=== PATIENT | female | born 1985 | race Caucasian/White ===

== ENCOUNTER 2025-04-17 10:43 | Outpatient (AMB) | payer OTHER, SELFPAY ==
--- NOTE | 2025-04-17 10:45 | MHC.OFFVIS ---
Vital Signs 04/17/25 10:46 Height 5 ft 5 in Weight 165 lb 9.074 oz BMI 27.5 BP 106/64 Blood Pressure Location Lt brachial Position Sitting Pulse 76 Pulse Source Pulse Oximeter Pulse Oximetry (%) 99 Oxygen Delivery Method Room Air Intake Visit Reasons: Hypothyroidism Intake Note: New patient present today for Hypothyroidism office visit. 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 Most recent labs from 02/17/2025 done at [facility], I reviewed them, TSH high at 5.57, normal free T4 at 1.03, normal free T3 at 281. She is currently on levothyroxine 25 mcg daily.Restarted January 2025. pharmacy: [facility] Was on levothyroxine from 2014 up until Aug 2024, when she was hospitalized with palpitations, dizziness, and TSH per patient was low around 0.07 and levothyroxine was discontinued. 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 US thyroid reviewed on patient's phone from [facility] early spring 2024 RUP solid hypoechoic 1.3 X 0.6 X 0.8 cm, TR 4. Left upper pole, solid hypoechoic 1.1 X 0.5 X 0.7 cm, TR 4 category. Left midpole solid hypoechoic 1 X 0.5 X 0.7 cm, TR 4 category. Reports constipation. Reports cold intolerance but wearing summer clothes today. palpitations improved. No tremors. Weight stable in the last few weeks, some fluctuation in the past months. Tired all the time low mood . Patient endorses difficulty swallowing since winter 2023, pain on swallowing. Reports hoarsness. Reports pressure sensation and fullness in the neck. Dyspnea on exertion. Patient denies any history of childhood neck radiation. Denies having ever used lithium, amiodarone or biotin supplements. Patient denies any family history of thyroid cancer . Grandmother: thyroid disease : 4 , 4 live births, no infertility issues Regular monthly periods Physical exam General: sitting comfortably in no acute distress HEENT: normocephalic/atraumatic, moist oral mucosa Neck: supple, symmetrical, no thyromegaly , Cardiac: normal heart sounds Pulm: normal breath sounds B/L, no added breath sounds Abd: not distended, no tenderness Extremities: no edema, no signs of myxedema Neuro: AAO x3, Speech: normal, no facial droop, moving all 4 extremities [facility] Medical History (Updated 04/17/25 @ 11:21 by Ernestina Segal MD) Subclinical hypothyroidism Multinodular goiter (nontoxic) Family History (Updated 04/17/25 @ 10:52 by ZEYAD Pierre) Mother Pancreatic cancer Diabetes Father Heart disease COPD (chronic obstructive pulmonary disease) Social History (Updated 04/17/25 @ 10:52 by ZEYAD Pierre) Alcohol intake: current Alcohol intake frequency: does not drink Patient Tobacco Use Status: Never used Tobacco Physical Exam Vital Signs: Last Vital Signs Pulse 76 04/17/25 10:46 BP 106/64 04/17/25 10:46 Pulse Ox 99 04/17/25 10:46 Oxygen Delivery Method Room Air 04/17/25 10:46 BMI result Body Mass Index 27.5 Assessment & Plan Assessment & Plan (1) Multinodular goiter (nontoxic): Code(s): E04.2 - Nontoxic multinodular goiter Category: Medical Plan: 39-year-old female with no family history of thyroid cancer, with no personal history of head or neck radiation coming in today for initial evaluation of multiple thyroid nodules. Ultrasound of the thyroid report reviewed on patient's phone, done in spring at [facility], showed multiple bilateral thyroid nodules, most of these are TR 4 nodules less than 1.5 cm which needed follow up. None meet criteria for FNA. At this point we will plan to repeat an ultrasound in 1 year from the last 1 which would be sometime in November 2025. I will go ahead and order that now. Plan: -ordered ultrasound of the thyroid to be done in November 2025 (2) Subclinical hypothyroidism: Code(s): E03.8 - Other specified hypothyroidism Category: Medical Plan: 39-year-old female with a history of subclinical hypothyroidism in the setting of Greg's thyroiditis diagnosed in 2014 who was on levothyroxine 25 mcg daily up until 08/06/2024 when she was hospitalized with palpitations, dizziness and was found to have a low TSH per patient. Most recent blood work in January 2025 showed TSH elevated at 5.57, normal free T4 of 1.03. Consistent with subclinical hyperthyroidism. She was restarted on low-dose levothyroxine 25 mcg daily. It has been about 8 weeks since she has been on the medicine. I discussed with the patient that normally indications for treatment of subclinical hypothyroidism include TSH greater than 10 or TSH between 6-9 when patient is having quite a few symptoms. At this point even though her TSH was not that elevated, it would just kind of borderline of 6, plus she does report improvement in most of her symptoms after she has been started on levothyroxine 25 mcg daily. For now she can continue this. I have asked her to repeat blood work today. We will reach out with the results. Plan: -continue levothyroxine 25 mcg daily -ordered TSH, free T4 to be done now, we will reach out with the results -we will need another set of blood work prior to follow up in 8 weeks Plan I spent 45 minutes in reviewing the record, seeing the patient and documenting in the medical record. Orders: Orders US thyroid 12/01/25 E04.2 - Nontoxic multinodular goiter Thyroid Stimulating Hormone Today E03.8 - Other specified hypothyroidism Free T4 (Free Thyroxine) Today E03.8 - Other specified hypothyroidism Coding Level of Care Code New Pt Level 4 (65982) Diagnoses Multinodular goiter (nontoxic) E04.2 Subclinical hypothyroidism E03.8 Time Spent (min) 45
[2025-04-17 10:46] VITALS: BP 106/64; PULSE 76; O2SAT 99; BMI 27.5
--- OUTSIDE RECORDS SUMMARY | 2025-04-17 11:22 | XMS_ITS | Clinical Summary ---
Author Organization [facility] Address [address] [place] [address] Phone Care Team Providers Care Quality Facilitator Name Role Phone Cody Grace MD Primary Care Provider [phone] Allergies Active Allergy Reactions Criticality Noted Date Comments Lisinopril Cough 03/18/2025 Medications levothyroxine (SYNTHROID, LEVOTHROID) 25 mcg tablet Take 1 tablet (25 mcg total) by mouth 1 (one) time each day before breakfast. 90 tablet 3 02/19/20 25 026 Active cholecalcifero l (VITAMIN D-3) 50 mcg (2,000 unit) capsule Take 1 capsule (2,000 Units total) by mouth 1 (one) time each day. 30 each 02/19/20 25 026 Active ferrous sulfate 325 mg (65 mg iron) EC tablet Take 1 tablet (325 mg total) by mouth 1 (one) time each day with breakfast. Do not crush, chew, or split. 90 tablet 1 03/31/20 25 Active hydroCHLOROthi azide (HYDRODIURIL) 25 mg tablet Take 1 tablet (25 mg total) by mouth 1 (one) time each day. 90 each 03/31/20 25 026 Active losartan (Cozaar) 25 mg tablet Take 2 tablets (50 mg total) by mouth 1 (one) time each day. 90 each 04/01/20 25 026 Active amLODIPine (NORVASC) 10 mg tablet TAKE ONE TABLET BY MOUTH EVERY DAY 90 tablet 04/10/20 25 Active amLODIPine (NORVASC) 10 mg tablet Take 1 tablet (10 mg total) by mouth 1 (one) time each day. 90 tablet 01/04/20 25 025 Discontinued hydroCHLOROthi azide (HYDRODIURIL) 50 mg tablet Take 1 tablet (50 mg total) by mouth 1 (one) time each day. 90 each 1 03/18/20 25 025 Discontinued(Re order) losartan (Cozaar) 25 mg tablet Take 1 tablet (25 mg total) by mouth 1 (one) time each day. 90 each 1 03/18/20 25 025 Discontinued(Re order) potassium chloride (KLOR-CON M20) 20 mEq CR tablet Take 1 tablet (20 mEq total) by mouth 2 (two) times a day for 2 days. Tablet may be swallowed whole (do not crush/chew/gtz ck on) OR broken in half and each half swallowed separately OR dissolved (whole tablet) in ~4 ounces of water (allow ~2 minutes to dissolve, stir well and administer immediately). 4 each 03/18/20 25 025 potassium chloride (KLOR-CON M20) 20 mEq CR tablet Take 1 tablet (20 mEq total) by mouth 2 (two) times a day for 7 days. Tablet may be swallowed whole (do not crush/chew/gtz ck on) OR broken in half and each half swallowed separately OR dissolved (whole tablet) in ~4 ounces of water (allow ~2 minutes to dissolve, stir well and administer immediately). 14 each 03/31/20 25 025 losartan (Cozaar) 25 mg tablet Take 2 tablets (50 mg total) by mouth 1 (one) time each day. 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 History of vitamin D deficiency 02/17/2025 History of iron deficiency anemia 02/17/2025 Essential hypertension 03/09/2016 Hypothyroidism 03/09/2016 Overview (07/31/2024): Synthroid 25 mcg daily Headache 12/26/2008 Encounters Date Type Department Care Team Description 04/07/2025 12:24 PM EDT - 04/07/2025 11:59 PM EDT Hospital Encounter Radiology Department - [address] [phone] Lymph node disorder Discharge Disposition: Home or Self Care 04/07/2025 12:24 PM EDT - 04/07/2025 11:59 PM EDT Hospital Encounter Radiology Department - [address] [phone] Abnormal ultrasound of breast Discharge Disposition: Home or Self Care 03/31/2025 1:59 PM EDT - 03/31/2025 11:59 PM EDT Hospital Encounter Radiology Department - [address] [phone] Lymph node disorder Discharge Disposition: Home or Self Care 03/31/2025 1:59 PM EDT - 03/31/2025 11:59 PM EDT Hospital Encounter Radiology Department - [address] [phone] Lymph node disorder Discharge Disposition: Home or Self Care 03/18/2025 10:15 AM EDT Office Visit Internal Medicine - [address] [phone] Arleen Azar NP Palpitations (Primary Dx); Essential hypertension; Screening for metabolic disorder; Hypothyroidism, unspecified type; Lymph node disorder 02/28/2025 1:17 PM EDT - 02/28/2025 11:59 PM EDT Hospital Encounter Ultrasound - [address] [phone] 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 Discharge Disposition: Home or Self Care 02/17/2025 10:35 AM EDT Lab Draw Station [address] Screening for metabolic disorder; 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 02/17/2025 10:00 AM EDT Office Visit Internal Medicine - [address] [phone] Arleen Azar, [employer] 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 (Primary Dx); Essential hypertension; Screening for metabolic disorder; History of iron deficiency anemia; History of vitamin D deficiency from Last 3 Months Immunizations Name Administration Dates Next Due Influenza Quadravalent, MDCK , 0.5ml, preservative free (Flucelvax) 6mo and older 07/12/2023,09/02/2021 Influenza Quadravalent, MDCK , 0.5ml, with preservative (Flucelvax) 6mo and older 06/22/2018,06/06/2017 Influenza trivalent, 0.5mL, preservative free (Fluarix; FluLaval; Fluzone) ages 6mo and older (Afluria) 3 years and older 07/30/2024,07/01/2011 PPD Test 12/15/2009 Tdap Tetanus diptheria acell ular pertussis (Boostrix; Adacel) 7yo and older 04/07/2017,12/26/2008 Surgical History Surgery Date Site/Laterality Comments OTHER SURGICAL HISTORY PROCEDURE: DENIES PREVIOUS SURGERY Medical History Medical History Date Comments Chlamydia infection, current 02/04/2011 DX:Chlamydia infection, current Anemia of mother in pregnanc y, antepartum 06/01/2011 DX:Anemia of mother in pregn shana, antepartum Essential hypertension 03/09/2016 DX:Essent ial hypertension Hypothyroidism 03/09/2016 DX:Hypothyroidis m Essential hypertension 03/09/2016 Hypothyroidism 03/09/2016 Family History Medical History Relation Name Comments Breast cancer Aunt mat maternal, bila teral mastectomy No Known Problems Brother Tima No Known Problems Daughter 1 No Known Problems Daughter 2 Hypertension Father Andres CAD (MS), COPD Prostate cancer Maternal Grandfather Colon cancer Maternal Grandmother Cancer Mother Ava Diabetes Mother Ava iddm, pancreati c CA (age 58) Early Mother Ava Breast cancer Mother's Sister Mirian labor Sister 1 Nina twins, deliver ed at ?6-7 months Spontaneous Abortions Sister 1 Nina Diabet es (GDM w/insulin), eclampsia No Known Problems Sister 2 Franny No Known Problems Sister 3 Sunita No Known Problems Son Relation Name Status Comments Aunt mat Alive Brother Tima Alive Daughter 1 Alive Daughter 2 Alive Father Andres Alive Maternal Grandfather Maternal Grandmother Alive Mother Ava (Age 59) Mother's Sister Mirian Paternal Grandfather Paternal Grandmother Sister 1 Nina Alive Sister 2 Franny Alive Sister 3 Sunita Alive Son Alive Social History Tobacco Use Types Packs/Day Years Used Date Smoking Tobacco: Never Smokeless Tobacco: Never Tobacco Cessation:Counseling Given: Not Answered Alcohol Use Standard Drinks/Week Comments No 0 (1 standard drink = 0.6 oz pur e alcohol) Housing Instability Answer Date Recorde d Are you worried that in the next 2 months you may not have stable housing? No 02/16/2025 Food Access & Nutrition Answer Date Rec orded Do you have access to a vari ety of food including fruits and vegetables? Yes 02/16/2025 Health Literacy Answer Date Recorded How often do you need to hav e someone help you when you read instructions, pamphlets, or other written material from your doctor or pharmacy? Never 02/16/2025 Caregiver: How often do you need to have someone help you when you read instructions, pamphlets, or other written material from your doctor or pharmacy? Not on file 02/16/2025 Financial Risk Answer Date Recorded How hard is it for you to pa y for the very basics like food, housing, medical care, and air conditioning / heating? Not very hard 02/16/2025 Transportation Answer Date Recorded Has the lack of transportati on kept you from meetings, work, or from getting things needed for daily living? No Has the lack of transportati on kept you from medical appointments or from getting medications? No 02/16/2025 Social Isolation Answer Date Recorded How often do you feel lonely or isolated from th ose around you? Rarely 02/16/2025 Food Risk Answer Date Recorded Within the past 12 months we worried whether our food would run out before we got money to buy more. Never true 02/16/2025 Within the past 12 months th e food we bought just didn't last and we didn't have money to get more. Never true 02/16/2025 Dependent Care Answer Date Recorded Do you need help finding or paying for care for your loved ones. For example, children's librarian or elderly care for an older adult? No 02/16/2025 Education Answer Date Recorded Do you think completing more education or training, like finishing a GED, going to college, or learning a trade, would be helpful for you? Yes 02/16/2025 Employment and Income Answer Date Recor ded During the last four weeks, have you been actively looking for work? No 02/16/2025 Living Situation Answer Date Recorded What is your living situation? 0 02/16/2025 Comments No Sex and Gender Information Value Date Recorded Sex Assigned at Not on file Legal Sex Female 8:38 PM EST Gender Identity Not on file Sexual Orientation Not on file Obstetrics History Para Term AB IAB SAB Ectopic Multiple Livin g Live Births 4 4 4 4 Date Outcome GA Total Labor Labor/2nd/3rd Weight Sex Type Anes PTL Iman A1 A5 Name Clin Term Term Term Term Last Filed Vital Signs Vital Sign Reading Time Taken Comments Blood Pressure 128/82 03/18/2025 10:14 AM EDT auto cuff Pulse 78 03/18/2025 10:14 AM EDT auto cuff Temperature 36.6 C (97.8 F) 03/18/2025 10:14 AM EDT Respiratory Rate 14 08/26/2024 1:14 PM EST Oxygen Saturation 99% 08/26/2024 1:14 PM EST Inhaled Oxygen Concentration - - Weight 75.6 kg (166 lb 11.2 oz) 025 10:14 AM EDT Height 165.1 cm (5' 5 ) 08/26/2024 1:14 PM EST Body Mass Index 27.74 08/26/2024 1:14 PM EST Plan of Treatment Upcoming Encounters Date Type Department Care Team (Late st Contact Info) Description 04/29/2025 10:15 AM EDT [facility] [address] [place], [place] [phone] Arleen Azar, KELLY [address] [place] [id number] Health Maintenance Due Date Last Done Comments Hepatitis B Vaccines (1 of 3 - 19+ 3-dose series) 2002 HIV Screening 09/03/2022 Hepatitis C Screening 09/03/2022 COVID-19 Vaccine ( season) 2024 11/12/2021, 10/21/2020, 09/30/2020 Influenza Vaccine (#1) 2025 , 07/12/2023, 09/02/2021, Additional history exists Social Influencers of Health Screening 02/16/2026 02/16/2025 Hypertension/CHF/CAD Annual BMP Blood Test 03/18/2026 03/18/2025, 02/17/2025, 07/30/2024, Additional history exists Cervical Cancer Screening: HPV 01/03/2027 01/03/2022 Breast Cancer Screening 03/31/2027 03/31/2025, 08/22 DTaP,Tdap,and Td Vaccines (3 - Td or Tdap) 04/07/2027 04/07/2017, 12/26/2008 Cholesterol Screening (Lipid Panel) 07/30/2029 07/30/2024, 07/30/2024 Depression Screening Completed 02/16/2025 HIB Vaccines Aged Out No longer eligi ble based on patient's age to complete this topic HPV Vaccines Aged Out No longer eligi ble based on patient's age to complete this topic Hepatitis A Vaccines Aged Out No long er eligible based on patient's age to complete this topic IPV Vaccines Aged Out No longer eligi ble based on patient's age to complete this topic MMR Vaccines Aged Out No longer eligi ble based on patient's age to complete this topic Meningococcal ACWY Vaccine Aged Out N o longer eligible based on patient's age to complete this topic Meningococcal B Vaccine Aged Out No l onger eligible based on patient's age to complete this topic Pneumococcal Vaccine: Pediatrics (0 to 5 Years) and At-Risk Patients (6 to 49 Years) Aged Out No longer eligible based on patient's age to complete this topic RSV Immunization Patients Under 20 months Aged Out No longer eligible based on patient's age to complete this topic Varicella Vaccines Aged Out No longer eligible based on patient's age to complete this topic Procedures Procedure Name Priority Date/Time Associated Diagnosis Comments MG MAMMO DIGITAL DIAGNOSTIC CLIP POST US/MR GUIDE LEFT Routine 04/07/2025 1:30 PM EDT Lymph node disorder US BX BREAST PERC 1ST LESION LEFT Routine 04/07/2025 1:22 PM EDT Abnormal ultrasound of breast TISSUE EXAM STAT 04/07/2025 1:15 PM EDT Abnormal ultrasound of breast US AXILLA (BREAST) LIMITED LEFT Routine 03/31/2025 3:09 PM EDT Lymph node disorder MG MAMMO DIGITAL DIAGNOSTIC W OMAR LEFT Routine 03/31/2025 2:47 PM EDT Lymph node disorder FERRITIN Routine 03/24/2025 10:05 AM EDT Low hemoglobin IRON AND TIBC Routine 03/24/2025 10:05 AM EDT Low hemoglobin FOLATE Routine 03/24/2025 10:05 AM EDT Low hemoglobin VITAMIN B12 Routine 03/24/2025 10:05 AM EDT Low hemoglobin ECG Routine 03/18/2025 11:46 AM EDT CBC WITH AUTO DIFFERENTIAL Routine 03/18/2025 11:34 AM EDT Essential hypertension COMPREHENSIVE METABOLIC PANEL Routine 03/18/2025 11:34 AM EDT Screening for metabolic disorder CBC AND DIFFERENTIAL Routine 03/18/2025 11:34 AM EDT Essential hypertension THYROID STIMULATING HORMONE WITH REFLEX TO FREE T4 AND FREE T3 Routine 03/18/2025 11:34 AM EDT Hypothyroidism, unspecified type US HEAD NECK SOFT TISSUE Today 025 1:53 PM EDT 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 TRIIODOTHYRONINE FREE Routine 02/17/2025 10:37 AM EDT 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 FREE THYROXINE WITH REFLEX TO FREE TRIIODOTHYRONINE Routine 02/17/2025 10:37 AM EDT 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 CBC WITH AUTO DIFFERENTIAL Routine 02/17/2025 10:37 AM EDT Screening for metabolic disorder THYROID STIMULATING HORMONE WITH REFLEX TO FREE T4 AND FREE T3 Routine 02/17/2025 10:37 AM EDT 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 CBC AND DIFFERENTIAL Routine 02/17/2025 10:37 AM EDT Screening for metabolic disorder VITAMIN D 25 HYDROXY Routine 02/17/2025 10:37 AM EDT Screening for metabolic disorder COMPREHENSIVE METABOLIC PANEL Routine 02/17/2025 10:37 AM EDT Screening for metabolic disorder HEMOGLOBIN A1C Routine 02/17/2025 10:37 AM EDT Screening for metabolic disorder LIPID PANEL Routine 07/30/2024 HM HPV Routine 01/03/2022 from Last 3 Months or Most Recently Relevant to Health Maintenance Results * MG Mammo Digital Diagnostic Clip Post US/MR Guide Left (04/07/2025 1:30 PM EDT) Anatomical Region Laterality Modality Breast Left Mammography 04/07/2025 2:19 PM EDT Impressions 04/10/2025 8:35 AM EDT Successful ultrasound-guided biopsy of a left breast 2:00 lesion SURGICAL PATHOLOGY REPORT DIAGNOSIS: Benign breast tissue, no atypia or neoplasm Pathology findings are concordant with imaging findings. BIRADS category 2 - Benign findings RECOMMENDATION: Return to annual mammography. A message was left on the patient's telephone on 04/10/2025 at 8:35 AM -------- FINAL REPORT -------- Dictated By: Margie Orlando Dictated Date: 04/07/2025 14:19 ET Assigned Physician: Margie Orlando Reviewed and Electronically Signed By: Margie Orlando Signed Date: 04/10/2025 08:35 ET Workstation ID: [id number] Transcribed By: Self Edit Transcribed Date: 04/07/2025 14:21 ET Narrative 04/10/2025 8:35 AM EDT EXAM: Ultrasound guided core-needle biopsy of the left breast. HISTORY: Ultrasound-guided biopsy of left breast 2:00 lesion COMPARISON: Ultrasound breast from 03/31/2025 CONSENT: The time-out, which included the woman's full name, date of , description of the expected procedure and procedure site, was performed immediately before the procedure to confirm woman's identity. Informed consent was obtained. PROCEDURE: An ultrasound guided biopsy was performed for the left breast 2:00 lesion. The patient was placed in the supine position and the lesion was localized using real-time sonography. The skin was prepped in the usual manner and draped. Subcutaneous lidocaine was administered at the expected entry site. Additional subcutaneous anesthesia was provided. A skin raciel was made using a scalpel. A 14-gauge spring breast biopsy needle was advanced to the preselected lesion. 4 core biopsy specimens were obtained and post-fire images documenting needle placement were recorded. Biopsy marker clip was inserted into the biopsy cavity under ultrasound guidance. Postprocedure mammogram demonstrates clip. Heart clip was placed. Following the procedure, the biopsy site was compressed and cleaned. Steri- Strips and sterile gauze were applied and the patient was given post-biopsy instructions. The patient tolerated the procedure well and left the department in good condition. Specimens were placed in formalin and sent for pathologic analysis. Permanent images are saved to PACS. Procedure Note Margie Orlando MD - 04/10/2025 EXAM: Ultrasound guided core-needle biopsy of the left breast. HISTORY: Ultrasound-guided biopsy of left breast 2:00 lesion COMPARISON: Ultrasound breast from 03/31/2025 CONSENT: The time-out, which included the woman's full name, date of ,description of the expected procedure and procedure site, was performedimmediately before the procedure to confirm woman's identity. Informed consent was obtained. PROCEDURE: An ultrasound guided biopsy was performed for the left breast 2:00lesion. The patient was placed in the supine position and the lesion was localizedusing real-time sonography. The skin was prepped in the usual manner anddraped. Subcutaneous lidocaine was administered at the expected entry site.Additional subcutaneous anesthesia was provided. A skin raciel was madeusing a scalpel. A 14- gauge spring breast biopsy needle was advanced tothe preselected lesion. 4 core biopsy specimens were obtained andpost-fire images documenting needle placement were recorded. Biopsy marker clip was inserted into the biopsy cavity under ultrasoundguidance. Postprocedure mammogram demonstrates clip. Heart clip wasplaced. Following the procedure, the biopsy site was compressed and cleaned.Steri-Strips and sterile gauze were applied and the patient was givenpost-biopsy instructions. The patient tolerated the procedure well and left the department in goodcondition. Specimens were placed in formalin and sent for pathologic analysis. Permanent images are saved to PACS. IMPRESSION: Successful ultrasound-guided biopsy of a left breast 2:00 lesion SURGICAL PATHOLOGY REPORT DIAGNOSIS: Benign breast tissue, no atypia or neoplasm Pathology findings are concordant with imaging findings. BIRADS category 2 - Benign findings RECOMMENDATION: Return to annual mammography. A message was left on the patient's telephone on 04/10/2025 at 8:35 AM -------- FINAL REPORT -------- Dictated By: Margie Orlando Dictated Date: 04/07/2025 14:19 ET Assigned Physician: Margie Orlando Reviewed and Electronically Signed By: Margie Orlando Signed Date: 04/10/2025 08:35 ET Workstation ID: [id number] Transcribed By: Self Edit Transcribed Date: 04/07/2025 14:21 ET us Arleen Bradford NP IMG BI PROCEDURES Final Resu lt * US Bx Breast Perc 1st Lesion Left (04/07/2025 1:22 PM EDT) Anatomical Region Laterality Modality Breast Left Ultrasound 04/07/2025 2:19 PM EDT Impressions 04/10/2025 8:35 AM EDT Successful ultrasound-guided biopsy of a left breast 2:00 lesion SURGICAL PATHOLOGY REPORT DIAGNOSIS: Benign breast tissue, no atypia or neoplasm Pathology findings are concordant with imaging findings. BIRADS category 2 - Benign findings RECOMMENDATION: Return to annual mammography. A message was left on the patient's telephone on 04/10/2025 at 8:35 AM -------- FINAL REPORT -------- Dictated By: Margie Orlando Dictated Date: 04/07/2025 14:19 ET Assigned Physician: Margie Orlando Reviewed and Electronically Signed By: Margie Orlando Signed Date: 04/10/2025 08:35 ET Workstation ID: [id number] Transcribed By: Self Edit Transcribed Date: 04/07/2025 14:21 ET Narrative 04/10/2025 8:35 AM EDT EXAM: Ultrasound guided core-needle biopsy of the left breast. HISTORY: Ultrasound-guided biopsy of left breast 2:00 lesion COMPARISON: Ultrasound breast from 03/31/2025 CONSENT: The time-out, which included the woman's full name, date of , description of the expected procedure and procedure site, was performed immediately before the procedure to confirm woman's identity. Informed consent was obtained. PROCEDURE: An ultrasound guided biopsy was performed for the left breast 2:00 lesion. The patient was placed in the supine position and the lesion was localized using real-time sonography. The skin was prepped in the usual manner and draped. Subcutaneous lidocaine was administered at the expected entry site. Additional subcutaneous anesthesia was provided. A skin raciel was made using a scalpel. A 14-gauge spring breast biopsy needle was advanced to the preselected lesion. 4 core biopsy specimens were obtained and post-fire images documenting needle placement were recorded. Biopsy marker clip was inserted into the biopsy cavity under ultrasound guidance. Postprocedure mammogram demonstrates clip. Heart clip was placed. Following the procedure, the biopsy site was compressed and cleaned. Steri- Strips and sterile gauze were applied and the patient was given post-biopsy instructions. The patient tolerated the procedure well and left the department in good condition. Specimens were placed in formalin and sent for pathologic analysis. Permanent images are saved to PACS. Procedure Note Margie Orlando MD - 04/10/2025 EXAM: Ultrasound guided core-needle biopsy of the left breast. HISTORY: Ultrasound-guided biopsy of left breast 2:00 lesion COMPARISON: Ultrasound breast from 03/31/2025 CONSENT: The time-out, which included the woman's full name, date of ,description of the expected procedure and procedure site, was performedimmediately before the procedure to confirm woman's identity. Informed consent was obtained. PROCEDURE: An ultrasound guided biopsy was performed for the left breast 2:00lesion. The patient was placed in the supine position and the lesion was localizedusing real-time sonography. The skin was prepped in the usual manner anddraped. Subcutaneous lidocaine was administered at the expected entry site.Additional subcutaneous anesthesia was provided. A skin raciel was madeusing a scalpel. A 14- gauge spring breast biopsy needle was advanced tothe preselected lesion. 4 core biopsy specimens were obtained andpost-fire images documenting needle placement were recorded. Biopsy marker clip was inserted into the biopsy cavity under ultrasoundguidance. Postprocedure mammogram demonstrates clip. Heart clip wasplaced. Following the procedure, the biopsy site was compressed and cleaned.Steri-Strips and sterile gauze were applied and the patient was givenpost-biopsy instructions. The patient tolerated the procedure well and left the department in goodcondition. Specimens were placed in formalin and sent for pathologic analysis. Permanent images are saved to PACS. IMPRESSION: Successful ultrasound-guided biopsy of a left breast 2:00 lesion SURGICAL PATHOLOGY REPORT DIAGNOSIS: Benign breast tissue, no atypia or neoplasm Pathology findings are concordant with imaging findings. BIRADS category 2 - Benign findings RECOMMENDATION: Return to annual mammography. A message was left on the patient's telephone on 04/10/2025 at 8:35 AM -------- FINAL REPORT -------- Dictated By: Margie Orlando Dictated Date: 04/07/2025 14:19 ET Assigned Physician: Margie Orlando Reviewed and Electronically Signed By: Margie Orlando Signed Date: 04/10/2025 08:35 ET Workstation ID: [id number] Transcribed By: Self Edit Transcribed Date: 04/07/2025 14:21 ET us Arelen Bradford NP [facility] US PROCEDURES Final Resu lt * Tissue exam (04/07/2025 1:15 PM EDT) Final Diagnosis Left breast, 2 o'clock, 5 cm from nipple, heart clip, ultrasound-guid ed core biopsy: Benign breast tissue with adenosis and fibrosis No atypia or neoplasm identified on deeper levels 04/09/2025 7:38 AM EDT [facility] Clinical Information fibroadenoma vs cancer heart clip lot [id number] 04/09/2025 7:38 AM EDT [facility] Gross Description A. Breast, Left, 2 o'clock 5 cm fn: Labeled breast L, left 2:00, 5 . Received in formalin are four cylindrical yellow-ellison fibrofatty breast cores, ranging from 0.5 x 0.1 cm to 0.9 x 0.1 cm, which are submitted in toto between sponges in one cassette, four pieces, x 3. Time collected: 1:15 PM 04/07/2025 Time put in formalin: 1:19 PM 04/07/2025 Total cold ischemic time: 4 minutes Time tissue exits final stage of formalin on tissue processor: 12 AM 04/08/2025 Total fixation time (ideally between 6 and 72 hours): 10.5 hours GERHARD 04/09/2025 7:38 AM EDT [facility] Disclaimer Unless otherwise specified, all tissue is 10% NB formalin fixed and paraffin embedded. 04/09/2025 7:38 AM EDT [facility] Tissue Left breast structure / Unknown 04/07/2025 1:15 PM EDT 04/07/2025 4:02 PM EDT us Margie Orlando MD LAB PATHOLOGY ORDERABLES Fi nal Result [facility] [address] [place] [address], * (ABNORMAL) US Axilla (Breast) Limited Left (03/31/2025 3:09 PM EDT) Anatomical Region Laterality Modality Breast Left Ultrasound 03/31/2025 3:28 PM EDT Narrative 03/31/2025 3:32 PM EDT Left breast diagnostic mammogram. Targeted left breast ultrasound. HISTORY: Lump in the left lateral breast. Prominent axillary lymph nodes. Full-field digital to DC views and Tomosynthesis mammograms were obtained as well as spot compression views of the left breast in CC and MLO projections. Marker was placed over the area of concern. Comparison with prior studies, latest from 08/22/2024. Breast tissue is heterogeneously dense. There is no suspicious masses, microcalcifications or architectural distortion. Targeted ultrasound of the left breast. Examination was directed by the patient to the area of concern. It corresponds to a circumscribed solid mass at 2 o'clock, 5 cm from the nipple, measuring 1.3 x 0.5 x 0.9 cm. Evaluation of the axillary region revealed several morphologically normal lymph nodes with large fatty centers. The largest lymph node measures 2.3 x 0.7 x 1.5 cm, previously 1.4 x 0.9 x 1.3 cm. CONCLUSIONS: Palpable abnormality corresponds to a circumscribed solid hypoechoic mass. Prominent morphologically normal axillary lymph nodes. Findings were explained to the patient. Patient prefers ultrasound-guided core biopsy of the area at 2 o'clock. Appointment is scheduled. BIRADS 4A. -------- FINAL REPORT -------- Dictated By: Altagracia Shah Dictated Date: 03/31/2025 15:28 ET Assigned Physician: Altagracia Shah Reviewed and Electronically Signed By: Altagracia Shah Signed Date: 03/31/2025 15:32 ET Workstation ID: [id number] Transcribed By: Self Edit Transcribed Date: 03/31/2025 15:28 ET Procedure Note Altagracia Shah MD - 03/31/2025 Left breast diagnostic mammogram. Targeted left breast ultrasound. HISTORY: Lump in the left lateral breast. Prominent axillary lymphnodes. Full-field digital to DC views and Tomosynthesis mammograms were obtainedas well as spot compression views of the left breast in CC and MLOprojections. Marker was placed over the area of concern. Comparison with prior studies, latest from 08/22/2024. Breast tissue is heterogeneously dense. There is no suspicious masses,microcalcifications or architectural distortion. Targeted ultrasound of the left breast. Examination was directed by the patient to the area of concern. Itcorresponds to a circumscribed solid mass at 2 o'clock, 5 cm from thenipple, measuring 1.3 x 0.5 x 0.9 cm. Evaluation of the axillary region revealed several morphologically normallymph nodes with large fatty centers. The largest lymph node measures 2.3x 0.7 x 1.5 cm, previously 1.4 x 0.9 x 1.3 cm. CONCLUSIONS: Palpable abnormality corresponds to a circumscribed solidhypoechoic mass. Prominent morphologically normal axillary lymph nodes.Findings were explained to the patient. Patient prefers ultrasound-guidedcore biopsy of the area at 2 o'clock. Appointment is scheduled. BIRADS 4A. -------- FINAL REPORT -------- Dictated By: Altagracia Shah Dictated Date: 03/31/2025 15:28 ET Assigned Physician: Altagracia Shah Reviewed and Electronically Signed By: Altagracia Shah Signed Date: 03/31/2025 15:32 ET Workstation ID: [id number] Transcribed By: Self Edit Transcribed Date: 03/31/2025 15:28 ET us Arleen Bradford NP IMG US PROCEDURES Final Resu lt * (ABNORMAL) MG Mammo Digital Diagnostic w Omar Left (03/31/2025 2:47 PM EDT) Anatomical Region Laterality Modality Breast Left Mammography 03/31/2025 3:28 PM EDT Narrative 03/31/2025 3:32 PM EDT Left breast diagnostic mammogram. Targeted left breast ultrasound. HISTORY: Lump in the left lateral breast. Prominent axillary lymph nodes. Full-field digital to DC views and Tomosynthesis mammograms were obtained as well as spot compression views of the left breast in CC and MLO projections. Marker was placed over the area of concern. Comparison with prior studies, latest from 08/22/2024. Breast tissue is heterogeneously dense. There is no suspicious masses, microcalcifications or architectural distortion. Targeted ultrasound of the left breast. Examination was directed by the patient to the area of concern. It corresponds to a circumscribed solid mass at 2 o'clock, 5 cm from the nipple, measuring 1.3 x 0.5 x 0.9 cm. Evaluation of the axillary region revealed several morphologically normal lymph nodes with large fatty centers. The largest lymph node measures 2.3 x 0.7 x 1.5 cm, previously 1.4 x 0.9 x 1.3 cm. CONCLUSIONS: Palpable abnormality corresponds to a circumscribed solid hypoechoic mass. Prominent morphologically normal axillary lymph nodes. Findings were explained to the patient. Patient prefers ultrasound-guided core biopsy of the area at 2 o'clock. Appointment is scheduled. BIRADS 4A. -------- FINAL REPORT -------- Dictated By: Altagracia Shah Dictated Date: 03/31/2025 15:28 ET Assigned Physician: Altagracia Shah Reviewed and Electronically Signed By: Altagracia Shah Signed Date: 03/31/2025 15:32 ET Workstation ID: [id number] Transcribed By: Self Edit Transcribed Date: 03/31/2025 15:28 ET Procedure Note Altagracia Shah MD - 03/31/2025 Left breast diagnostic mammogram. Targeted left breast ultrasound. HISTORY: Lump in the left lateral breast. Prominent axillary lymphnodes. Full-field digital to DC views and Tomosynthesis mammograms were obtainedas well as spot compression views of the left breast in CC and MLOprojections. Marker was placed over the area of concern. Comparison with prior studies, latest from 08/22/2024. Breast tissue is heterogeneously dense. There is no suspicious masses,microcalcifications or architectural distortion. Targeted ultrasound of the left breast. Examination was directed by the patient to the area of concern. Itcorresponds to a circumscribed solid mass at 2 o'clock, 5 cm from thenipple, measuring 1.3 x 0.5 x 0.9 cm. Evaluation of the axillary region revealed several morphologically normallymph nodes with large fatty centers. The largest lymph node measures 2.3x 0.7 x 1.5 cm, previously 1.4 x 0.9 x 1.3 cm. CONCLUSIONS: Palpable abnormality corresponds to a circumscribed solidhypoechoic mass. Prominent morphologically normal axillary lymph nodes.Findings were explained to the patient. Patient prefers ultrasound-guidedcore biopsy of the area at 2 o'clock. Appointment is scheduled. BIRADS 4A. -------- FINAL REPORT -------- Dictated By: Altagracia Shah Dictated Date: 03/31/2025 15:28 ET Assigned Physician: Altagracia Shah Reviewed and Electronically Signed By: Altagracia Shah Signed Date: 03/31/2025 15:32 ET Workstation ID: [id number] Transcribed By: Self Edit Transcribed Date: 03/31/2025 15:28 ET us Arleen Bradford INTERNATIONAL EDITORIAL PRODUCER IMG BI PROCEDURES Final Resu lt * (ABNORMAL) Iron and TIBC (03/24/2025 10:05 AM EDT) Iron 50 40 - 150 mcg/dL LAB CHEMISTRY METHOD 03/24/2025 3:57 PM EDT [facility] TIBC 405 250 - 450 mcg/dL LAB CHEMISTRY METHOD 03/24/2025 3:57 PM EDT [facility] Iron Saturation 12(L) 15 - 50 % LAB CHEMISTRY METHOD 03/24/2025 3:57 PM EDT [facility] Blood Venous blood specimen / Unknown Venipuncture / Unknown 03/24/2025 10:05 AM EDT 03/24/2025 10:05 AM EDT us Arleen Bradford INTERNATIONAL EDITORIAL PRODUCER LAB BLOOD ORDERABLES Final R esult Performing Organization Address City/[facility]/ZIP Co de Phone Number [facility] [address] [place] [address], * Folate (03/24/2025 10:05 AM EDT) Folate 16.0 2.8 - 17.0 ng/ml LAB CHEMISTRY METHOD 03/24/2025 4:10 PM EDT [facility] Blood Venous blood specimen / Unknown Venipuncture / Unknown 03/24/2025 10:05 AM EDT 03/24/2025 10:05 AM EDT us Arleen Bradford INTERNATIONAL EDITORIAL PRODUCER LAB BLOOD ORDERABLES Final R esult [facility] [address] [place] [address], * (ABNORMAL) Ferritin (03/24/2025 10:05 AM EDT) [facility] Ferritin 7(L) 8 - 252 ng/mL LAB CHEMISTRY METHOD 03/24/2025 4:16 PM EDT [facility] Blood Venous blood specimen / Unknown Venipuncture / Unknown 03/24/2025 10:05 AM EDT 03/24/2025 10:05 AM EDT Arleen Bradford NP LAB BLOOD ORDERABLES Final R esult Performing Organization Address [facility] Co de Phone Number [facility] [address] [place] [address], * Vitamin B12 (03/24/2025 10:05 AM EDT) [facility] Vitamin B-12 302 250 - 900 pcg/mL LAB CHEMISTRY METHOD 03/24/2025 9:19 PM EDT [facility] Blood Venous blood specimen / Unknown Venipuncture / Unknown 03/24/2025 10:05 AM EDT 03/24/2025 10:05 AM EDT us Arleen Bradford NP LAB BLOOD ORDERABLES Final R esult Performing Organization Address City/[facility]/ZIP Co de Phone Number [facility] [address] [place] [address], [place] [phone] * ECG (03/18/2025 11:46 AM EDT) Historical Provider ECG ORDERABLES Final Res ult * Thyroid stimulating hormone with reflex to free t4 and free t3 (03/18/2025 11:34 AM EDT) Only the most recent of2 resultswithin the time period is included. [facility] TSH 3.64 0.40 - 4.00 mcIU/mL LAB CHEMISTRY METHOD 03/18/2025 3:48 PM EDT [facility] Blood Venous blood specimen / Unknown Venipuncture / Unknown 03/18/2025 11:34 AM EDT 03/18/2025 11:34 AM EDT us Arleen Bradford INTERNATIONAL EDITORIAL PRODUCER LAB BLOOD ORDERABLES Final R esult [facility] [address] [place] [address], * (ABNORMAL) CBC auto differential (03/18/2025 11:34 AM EDT) Only the most recent of2 resultswithin the time period is included. [facility] WBC 7.5 4.8 - 10.8 K/mcL LAB [facility]EMETOLOGY [facility] RBC 4.50 3.80 - 4.80 M/mcL LAB HEMETOLOGY METHOD [facility]/18[facility] Hemoglobin 11.2(L) 11.5 - 16.0 g/dL LAB HEMETOLOGY METHOD 03/18[facility]2025 [facility] Hematocrit 36.2 35.0 - 47.0 % LAB HEMETOLOGY METHOD 03/18/2025 2:02 PM EDT [facility] MCV 81.3 79.0 - 98.0 FL LAB HEMETOLOGY METHOD 03/18[facility]2025 [facility] MCH 25.2(L) 27.0 - 32.0 pcg LAB HEMETOLOGY METHOD 03/18/2025 [facility] MCHC 30.9(L) 32.0 - 37.0 g/dL LAB HEMETOLOGY METHOD 03/18/2025 2:02 PM [facility] RDW 15.4(H) 11.0 - 15.0 % LAB HEMETOLOGY METHOD 03/18/2025 2:02 PM [facility] Platelets 418(H) 130 - 400 K/mcL LAB HEMETOLOGY METHOD 03/18/2025 2:02 PM [facility] MPV 11.1(H) 7.0 - 11.0 FL LAB HEMETOLOGY METHOD 03/18/2025 2:02 PM [facility] NRBC 0.0 <1.0 % LAB HEMETOLOGY METHOD 03/18/2025 2:02 PM [facility] NRBC Absolute 0.00 <0.10 K/mcL LAB HEMETOLOGY METHOD 03/18/2025 2:02 PM [facility] Neutrophils Relative 55.3 % LAB HEMETOLOGY METHOD 03/18/2025 2:02 PM [facility] Lymphocytes Relative 29.4 % LAB HEMETOLOGY METHOD 03/18/2025 2:02 PM [facility] Monocytes Relative 10.1 % LAB HEMETOLOGY METHOD 03/18/2025 2:02 PM [facility] Eosinophils Relative 3.7 % LAB HEMETOLOGY METHOD 03/18/2025 2:02 PM [facility] Basophils Relative 1.2 % LAB HEMETOLOGY METHOD 03/18/2025 2:02 PM [facility] Immature Granulocytes Relative 0.3 % LAB HEMETOLOGY METHOD 03/18/2025 2:02 PM [facility] Neutrophils Absolute 4.16 1.50 - 7.00 K/mcL LAB HEMETOLOGY METHOD 03/18/2025 2:02 PM [facility] Lymphocytes Absolute 2.21 1.00 - 5.00 K/mcL LAB HEMETOLOGY METHOD 03/18/2025 2:02 PM EDT [facility] Monocytes Absolute 0.76 0.20 - 1.00 K/mcL LAB HEMETOLOGY METHOD 03/18/2025 2:02 PM EDT [facility] Eosinophils Absolute 0.28 0.00 - 0.50 K/[facility] HEMETOLOGY METHOD 03/18/2025 2:02 PM EDT [facility] Basophils Absolute 0.09 0.00 - 0.20 K/[facility] HEMETOLOGY METHOD 03/18/2025 2:02 PM EDT [facility] Immature Granulocytes Absolute 0.02 0.00 - 0.03 K/[facility] HEMETOLOGY METHOD [facility]/18[facility] Blood Venous blood specimen / Unknown Venipuncture / Unknown 03/18/2025 11:34 AM EDT 03/18/2025 11:34 AM EDT us Arleen Bradford INTERNATIONAL EDITORIAL PRODUCER LAB BLOOD ORDERABLES Final R esult [facility] [address] [place] [address], * (ABNORMAL) Comprehensive metabolic panel (03/18/2025 11:34 AM EDT) Only the most recent of2 resultswithin the time period is included. Sodium 140 133 - 145 mmol/L LAB CHEMISTRY METHOD 03/18/2025 3:30 PM EDT [facility] Potassium 3.1(L) 3.5 - 5.5 mmol/L LAB CHEMISTRY METHOD 03/18[facility]2025 [facility] Chloride 103 96 - 110 mmol/L LAB CHEMISTRY METHOD 03/18/2025 3:30 PM [facility] CO2 29 21 - 32 mmol/L LAB CHEMISTRY METHOD 03/18/2025 3:30 PM EDT [facility] Anion Gap 8 3 - 11 LAB CHEMISTRY METHOD 03/18/2025 3:30 PM [facility] Glucose 99 70 - 100 mg/dL LAB CHEMISTRY METHOD 03/18/2025 3:30 PM [facility] BUN 14 5 - 25 mg/dL LAB CHEMISTRY METHOD 03/18/2025 3:30 PM [facility] Creatinine 0.82 0.50 - 1.10 mg/dL LAB CHEMISTRY METHOD 03/18/2025 3:30 PM [facility] eGFR 92 >=60 mL/min/1. 73m2 LAB CHEMISTRY METHOD 03/18/2025 3:30 PM [facility] Comment:Calculation based on the Chronic Kidney Disease Epidemiology Collaboration (CKD-EPI) equation refit without adjustment for race. BUN/Creatinine Ratio 17.1 LAB CHEMISTRY METHOD 03/18/2025 3:30 PM [facility] Calcium 8.8 8.5 - 10.5 mg/dL LAB CHEMISTRY METHOD 03/18/2025 3:30 PM [facility] AST (SGOT) 13 10 - 42 unit/L LAB CHEMISTRY METHOD 03/18/2025 3:30 PM [facility] ALT (SGPT) 20 10 - 60 unit/L LAB CHEMISTRY METHOD 03/18/2025 3:30 PM [facility] Alkaline Phosphatase 37(L) 42 - 121 unit/L LAB CHEMISTRY METHOD 03/18/2025 3:30 PM [facility] Total Protein 7.2 6.0 - 8.0 g/dL LAB CHEMISTRY METHOD 03/18/2025 3:30 PM [facility] Albumin 3.8 3.2 - 5.0 g/dL LAB CHEMISTRY METHOD 03/18/2025 3:30 PM [facility] Total Bilirubin 0.6 0.0 - 1.4 mg/dL LAB CHEMISTRY METHOD 03/18/2025 3:30 PM EDT [facility] Blood Venous blood specimen / Unknown Venipuncture / Unknown 03/18/2025 11:34 AM EDT 03/18/2025 11:34 AM EDT us Arleen Bradford NP LAB BLOOD ORDERABLES Final R esult [facility] [address] [place] [address], * US Head Neck Soft Tissue (02/28/2025 1:53 PM EDT) Anatomical Region Laterality Modality Head and Neck Ultrasound 02/28/2025 3:01 PM EDT Impressions 02/28/2025 3:10 PM EDT 1. Bilateral thyroid nodules as above. One-year follow-up is recommended per ACR TI RADS criteria. 2. Palpable concerns in bilateral submandibular regions correlates with prominent lymph nodes, which are likely reactive. TI-RADS 2017 reference: Tessler FN, Elif WD, David EG, et al. ACR Thyroid Imaging, Reporting and Data System (TI-RADS): White Paper of the ACR TI-RADS Committee. J Am Kaylynn Radiol. Volume 14, Issue 5 , 587 595. http://www.jacr.org/article/O5283-9456(17)[email or web address]/fulltext ACR TI-RADS recommendations: TR1 and TR2: No FNA or follow-up. TR3: FNA if greater than 2.4 cm, follow-up if 1.5-2.4 cm in 1, 3 and 5 years. TR4: FNA if greater than 1.4 cm, follow-up if 1.0-1.4 cm in 1, 2, 3 and 5 years. TR5: FNA if greater than 0.9 cm, follow-up if 0.5-0.9 cm every year for 5 years. TI-RADS calculator: http://tiradscalculator.com/ -------- FINAL REPORT -------- Dictated By: Daisy Siddiqui Dictated Date: 02/28/2025 15:01 ET Assigned Physician: Daisy Siddiqui Reviewed and Electronically Signed By: Daisy Siddiqui Signed Date: 02/28/2025 15:10 ET Workstation ID: [id number] Transcribed By: Self Edit Transcribed Date: 02/28/2025 15:01 ET Narrative 02/28/2025 3:10 PM EDT THYROID ULTRASOUND INDICATION: OTHER feels like the thyroid is increased in size and having issues on breathing. TECHNIQUE: Ultrasound evaluation of the thyroid gland was performed with choudhary scale and color Doppler imaging. COMPARISON: None FINDINGS: ACR TI-RADS criteria was utilized for nodule description and follow-up recommendations. RIGHT THYROID: Right thyroid lobe demonstrates heterogeneous echotexture measuring 4.0 x 1.5 x 1.6 cm. Nodule(s) in the right lobe (greater than or equal to 0.5 cm) are as described: 1. Nodule in upper pole is solid (2), hypoechoic (2), koqhi-mtby-ksci (0), with ill-defined margins (0) and without internal echogenic foci (0). Nodule measures 1.3 x 0.6 x 0.8 cm. As per ACR TI-RADS nodule is categorized as TR-4. Recommendation per ACR-TIRADS: One year follow up ultrasound is recommended. LEFT THYROID: Left thyroid lobe demonstrates heterogeneous echotexture measuring 4.2 x 1.3 x 1.5 cm. Nodule(s) in the right lobe (greater than or equal to 0.5 cm) are as described: 1. Nodule in upper pole is solid (2), hypoechoic (2), mxvva-ryli-uexn (0), with ill-defined margins (0) and without internal echogenic foci (0). Nodule measures 1.1 x 0.5 x 0.7 cm. As per ACR TI-RADS nodule is categorized as TR-4. Recommendation per ACR-TIRADS: One year follow up ultrasound is recommended. 2. Nodule in mid pole is solid (2), hypoechoic (2), pjbda-vpuw-ihqt (0), with ill-defined margins (0) and without internal echogenic foci (0). Nodule measures 1.0 x 0.5 x 0.7 cm. As per ACR TI-RADS nodule is categorized as TR-4. Recommendation per ACR-TIRADS: One year follow up ultrasound is recommended. ISTHMUS: The isthmus measures 0.2 cm. No thyroid nodules greater than 0.5 cm identified. VASCULARITY: Color doppler demonstrates normal blood flow to thyroid gland. Targeted ultrasound was also performed at the location of the palpable concern in the right submandibular region and left submandibular region. The survey shows multiple prominent lymph nodes measuring up to 1.0 cm in short axis. Procedure Note Daisy Siddiqui MD - 02/28/2025 THYROID ULTRASOUND INDICATION: OTHER feels like the thyroid is increased in size and having issues onbreathing. TECHNIQUE: Ultrasound evaluation of the thyroid gland was performed withgray scale and color Doppler imaging. COMPARISON: None FINDINGS: ACR TI-RADS criteria was utilized for nodule description and follow-uprecommendations. RIGHT THYROID: Right thyroid lobe demonstrates heterogeneous echotexturemeasuring 4.0 x 1.5 x 1.6 cm. Nodule(s) in the right lobe (greater than orequal to 0.5 cm) are as described: 1. Nodule in upper pole is solid (2), hypoechoic (2), pwpre-ttmx-zxjm(0), with ill-defined margins (0) and without internal echogenic foci (0).Nodule measures 1.3 x 0.6 x 0.8 cm. As per ACR TI-RADS nodule iscategorized as TR-4. Recommendation per ACR-TIRADS: One year follow upultrasound is recommended. LEFT THYROID: Left thyroid lobe demonstrates heterogeneous echotexturemeasuring 4.2 x 1.3 x 1.5 cm. Nodule(s) in the right lobe (greater thanor equal to 0.5 cm) are as described: 1. Nodule in upper pole is solid (2), hypoechoic (2), qzlwm-vnsp-khal(0), with ill-defined margins (0) and without internal echogenic foci (0).Nodule measures 1.1 x 0.5 x 0.7 cm. As per ACR TI-RADS nodule iscategorized as TR-4. Recommendation per ACR-TIRADS: One year follow upultrasound is recommended. 2. Nodule in mid pole is solid (2), hypoechoic (2), kpipi-cbid-cnbp (0),with ill-defined margins (0) and without internal echogenic foci (0).Nodule measures 1.0 x 0.5 x 0.7 cm. As per ACR TI-RADS nodule iscategorized as TR-4. Recommendation per ACR-TIRADS: One year follow upultrasound is recommended. ISTHMUS: The isthmus measures 0.2 cm. No thyroid nodules greater than 0.5cm identified. VASCULARITY: Color doppler demonstrates normal blood flow to thyroidgland. Targeted ultrasound was also performed at the location of the palpableconcern in the right submandibular region and left submandibular region.The survey shows multiple prominent lymph nodes measuring up to 1.0 cm inshort axis. IMPRESSION: 1. Bilateral thyroid nodules as above. One-year follow-up is recommendedper ACR TI RADS criteria. 2. Palpable concerns in bilateral submandibular regions correlates withprominent lymph nodes, which are likely reactive. TI-RADS 2017 reference: Светлнааsler FN, Elif WD, David EG, et al. ACR Thyroid Imaging, Reportingand Data System (TI-RADS): White Paper of the ACR TI-RADS Committee. J AmColl Radiol. Volume 14, Issue 5 , 582 - 998. http://www.jacr.org/article/Y4177-0602(17)56434-5/fulltext ACR TI-RADS recommendations: TR1 and TR2: No FNA or follow-up. TR3: FNA if greater than 2.4 cm, follow-up if 1.5-2.4 cm in 1, 3 and 5years. TR4: FNA if greater than 1.4 cm, follow-up if 1.0-1.4 cm in 1, 2, 3 and 5years. TR5: FNA if greater than 0.9 cm, follow-up if 0.5-0.9 cm every year for 5years. TI-RADS calculator: http://tiradscalculator.com/ -------- FINAL REPORT -------- Dictated By: Daisy Siddiqui Dictated Date: 02/28/2025 15:01 ET Assigned Physician: Daisy Siddiqui Reviewed and Electronically Signed By: Daisy Siddiqui Signed Date: 02/28/2025 15:10 ET Workstation ID: [id number] Transcribed By: Self Edit Transcribed Date: 02/28/2025 15:01 ET us Arleen Bradford INTERNATIONAL EDITORIAL PRODUCER IMG US PROCEDURES Final Resu lt * Free thyroxine with reflex to free triiodothyronine (02/17/2025 10:37 AM EDT) Free T4 1.03 0.70 - 1.80 ng/dL LAB CHEMISTRY METHOD 02/17/2025 6:05 PM EDT [facility] Blood Venous blood specimen / Unknown Venipuncture / Unknown 02/17/2025 10:37 AM EDT 02/17/2025 10:37 AM EDT Arleen Bradford INTERNATIONAL EDITORIAL PRODUCER LAB BLOOD ORDERABLES Final R esult Performing Organization Address City/[facility]/ZIP Co de Phone Number [facility] [address] [place] [address], [place] [phone] * (ABNORMAL) Vitamin D 25 hydroxy (02/17/2025 10:37 AM EDT) [facility] Vit D, 25-Hydroxy 24.8(L) 30.0 - 80.0 ng/mL LAB CHEMISTRY METHOD 02/17/2025 5:04 PM EDT [facility] Blood Venous blood specimen / Unknown Venipuncture / Unknown 02/17/2025 10:37 AM EDT 02/17/2025 10:37 AM EDT us Arleen Bradford INTERNATIONAL EDITORIAL PRODUCER LAB BLOOD ORDERABLES Final R esult [facility] [address] [place] [address], [place] [phone] * Triiodothyronine free (02/17/2025 10:37 AM EDT) T3, Free 281 230 - 420 pcg/dL LAB CHEMISTRY METHOD 02/17/2025 6:59 PM EDT [facility] Blood Venous blood specimen / Unknown Venipuncture / Unknown 02/17/2025 10:37 AM EDT 02/17/2025 10:37 AM EDT us Arleen Bradford INTERNATIONAL EDITORIAL PRODUCER LAB BLOOD ORDERABLES Final R esult [facility] [address] [place] [address], [place] [phone] * Hemoglobin A1c (02/17/2025 10:37 AM EDT) [facility] Hemoglobin A1C 6.3 <6.5 % LAB CHEMISTRY METHOD 02/17/2025 9:55 PM EDT [facility] Mean Bld Glu Estim. 134 mg/dL LAB CHEMISTRY METHOD 02/17/2025 9:55 PM EDT [facility] Blood Venous blood specimen / Unknown Venipuncture / Unknown 02/17/2025 10:37 AM EDT 02/17/2025 10:37 AM EDT us Arleen Bradford NP LAB BLOOD ORDERABLES Final R esult Performing Organization Address City/[facility]/ZIP Co de Phone Number [facility] [address] [place] [address], [place] [phone] * Lipid panel (07/30/2024) [facility] LDL/HDL Ratio 3 0 - 4 Triglycerides 125 0 - 150 mg/dL Cholesterol 136 0 - 200 mg/dL HDL 47 >=40 mg/dL LDL Cholesterol 64 0 - 100 mg/dL Blood Venous blood specimen / Unknown Historical Provider LAB BLOOD ORDERABLES Rhoda l Result * Cervical Cancer Screening: HPV (01/03/2022) [facility] Cervical Cancer Screening: HPV Negative, abstracted us Historical Provider HEALTH MAINTENANCE Final Result from Last 3 Months or Most Recently Relevant to Health Maintenance Insurance [address] [place] [address] [employer] Care Teams Quality Facilitator Relationship Specialty Start Date End Date Cody Grace MD [address] [place] [id number] PCP - General Internal Medicine 08/19/24
== END 2025-04-17 11:26 | disposition home or self-care (01) ==
LOC: HO.ENCR 10:44
PROVIDERS: PCP Internal Medicine; Visit Provider Student in an Organized Health Care Education/Training Program
DX: E04.2 Nontoxic multinodular goiter (principal); E03.8 Other specified hypothyroidism
CPT/HCPCS: 99204

== ENCOUNTER 2025-04-17 10:43 | Outpatient (REF) | payer OTHER, SELFPAY ==
[2025-04-17 13:15] LABS: Free T4 (Free Thyroxine) 1.10 ng/dL (0.71-1.85); Thyroid Stimulating Hormone 5.02 uIU/mL (0.32-4.0)
== END 2025-04-17 10:44 | disposition home or self-care (01) ==
LOC: HO.LAB 10:43
PROVIDERS: PCP Internal Medicine; Visit Provider Student in an Organized Health Care Education/Training Program
DX: E03.8 Other specified hypothyroidism (principal); E04.2 Nontoxic multinodular goiter; Z79.899 Other long term (current) drug therapy
CPT/HCPCS: 36415; 84439; 84443; 99202

== ENCOUNTER 2025-09-09 09:19 | Outpatient (REF) | payer OTHER, SELFPAY ==
[2025-09-09 10:50] LABS: Free T4 (Free Thyroxine) 1.37 ng/dL (0.71-1.85); Thyroid Stimulating Hormone 0.21 uIU/mL (0.32-4.0)
== END 2025-09-09 09:20 | disposition home or self-care (01) ==
LOC: HO.LAB 09:19
PROVIDERS: PCP Internal Medicine; Visit Provider Student in an Organized Health Care Education/Training Program
DX: E04.2 Nontoxic multinodular goiter (principal); E03.8 Other specified hypothyroidism
CPT/HCPCS: 36415; 84439; 84443

== ENCOUNTER 2025-09-16 16:15 | Outpatient (AMB) | payer OTHER, SELFPAY ==
[2025-09-16 16:21] VITALS: BP 106/68; PULSE 104; O2SAT 98; BMI 28.3
--- NOTE | 2025-09-16 16:21 | MHC.OFFVIS ---
Vital Signs 09/16/25 16:21 Height 5 ft 5 in Weight 170 lb 3.15 oz BMI 28.3 BP 106/68 Blood Pressure Location Rt brachial Position Sitting Pulse 104 H Pulse Source Pulse Oximeter Pulse Oximetry (%) 98 Oxygen Delivery Method Room Air Intake Visit Reasons: Hypothyroidism/Dr. Segal pt. Intake Note: Patient present today for Hypothyroidism follow up. Business Unit Leader Required: No Accompanied by: Self / Same As Patient Allergies No Known Allergies Allergy (Verified 09/16/25 16:22) HPI Comments Details: 40 -year-old female here today for initial evaluation of hypothyroidism and multiple thyroid nodules.. Pt previously Dr. Segal on 04/17/25 Most recent labs from 02/17/2025 done at [place], I reviewed them, TSH high at 5.57, normal free T4 at 1.03, normal free T3 at 281. She is currently on levothyroxine 25 mcg daily.Restarted January 2025. pharmacy: [facility] Was on levothyroxine from 2014 up until Aug 2024, when she was hospitalized with palpitations, dizziness, and TSH per patient was low around 0.07 and levothyroxine was discontinued. 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 US thyroid reviewed on patient's phone from [facility] early spring 2024 RUP solid hypoechoic 1.3 X 0.6 X 0.8 cm, TR 4. Left upper pole, solid hypoechoic 1.1 X 0.5 X 0.7 cm, TR 4 category. Left midpole solid hypoechoic 1 X 0.5 X 0.7 cm, TR 4 category. Reports constipation. Reports cold intolerance but wearing summer clothes today. palpitations improved. No tremors. Weight stable in the last few weeks, some fluctuation in the past months. Tired all the time low mood . Patient endorses difficulty swallowing since winter 2023, pain on swallowing. Reports hoarsness. Reports pressure sensation and fullness in the neck. Dyspnea on exertion. Patient denies any history of childhood neck radiation. Denies having ever used lithium, amiodarone or biotin supplements. Patient denies any family history of thyroid cancer . Grandmother: thyroid disease : 4 , 4 live births, no infertility issues Regular monthly periods Recent TSH was suppressed on L-T4 25 ug 6X/wk and 2 pills once a wk . Stopped L-T4 PFS Medical History (Updated 04/17/25 @ 11:21 by Ernestina Segal MD) Subclinical hypothyroidism Multinodular goiter (nontoxic) Surgical History (Updated 09/16/25 @ 16:23 by Krista Kessler Shaji) No pertinent past surgical history Family History (Updated 04/17/25 @ 10:52 by ZEYAD Pierre) Mother Pancreatic cancer Diabetes Father Heart disease COPD (chronic obstructive pulmonary disease) Social History (Updated 04/17/25 @ 10:52 by ZEYAD Pierre) Alcohol intake: current Alcohol intake frequency: does not drink Patient Tobacco Use Status: Never used Tobacco Physical Exam Const Other: Thyoid gland of nl size 15 gms. No thyroid nodules palpated Assessment & Plan Assessment & Plan (1) Multinodular goiter (nontoxic): Code(s): E04.2 - Nontoxic multinodular goiter Category: Medical Plan: 40-year-old female with no family history of thyroid cancer, with no personal history of head or neck radiation coming in today for initial evaluation of multiple thyroid nodules. Ultrasound of the thyroid report reviewed on patient's phone, done in spring at [facility], showed multiple bilateral thyroid nodules, most of these are TR 4 nodules less than 1.5 cm which needed follow up. None meet criteria for FNA. At this point we will plan to repeat an ultrasound in 1 year from the last 1 which would be sometime in November 2025. Plan: -ordered ultrasound of the thyroid to be done in November 2025 with f/u to Dr. Segal after (2) Subclinical hypothyroidism: Code(s): E03.8 - Other specified hypothyroidism Category: Medical Plan: Hx if Hash on 25 ug 6X/wk and 2 pills on Monday with suppressed TSH Plan is to to decrease L-T4 to 25 ug 1 pill 6X/wk and 1 1/2 pills once a wk and recheck TSH and free T4 in 6 wks Orders: Orders Free T4 (Free Thyroxine) 6 Weeks E03.8 - Other specified hypothyroidism, E04.9 - Nontoxic goiter, unspecified Thyroid Stimulating Hormone 6 Weeks E03.8 - Other specified hypothyroidism, E04.9 - Nontoxic goiter, unspecified Medications: Changed From levothyroxine orally daily; take 1 tablet daily Monday to Monday and 2 tablets on Sundays 45 tabs 3RF To levothyroxine orally daily; take 1 tablet daily Monday to Monday and 1 1/2 tablets on Sundays 45 tabs 3RF Coding Level of Care Code Est Pt Level 3 (77131) Add On Problem Visit Only Diagnoses Multinodular goiter (nontoxic) E04.2 Subclinical hypothyroidism E03.8
--- OUTSIDE RECORDS SUMMARY | 2025-09-16 20:11 | XMS_ITS | Clinical Summary ---
Author Organization [address] [facility] Address [address] [place] [address] Phone Care Team Providers Care Practical Nurse Clinical Coordinator Name Role Phone Cody Grace MD Primary Care Provider [phone] Allergies Active Allergy Reactions Criticality Noted Date Comments Lisinopril Cough 03/18/2025 Medications levothyroxine (SYNTHROID, LEVOTHROID) 25 mcg tablet Take 1 tablet (25 mcg total) by mouth 1 (one) time each day before breakfast. 90 tablet 3 5 02/19/20 26 Active cholecalciferol (VITAMIN D-3) 50 mcg (2,000 unit) capsule Take 1 capsule (2,000 Units total) by mouth 1 (one) time each day. 30 each 11 5 02/19/20 26 Active Additional Information Patient not taking.Reported on 07/28/2025 ferrous sulfate 325 mg (65 mg iron) EC tablet Take 1 tablet (325 mg total) by mouth 1 (one) time each day with breakfast. Do not crush, chew, or split. 90 tablet 1 5 Active losartan (Cozaar) 25 mg tablet Take 2 tablets (50 mg total) by mouth 1 (one) time each day. 90 each 5 04/01/20 26 Active docusate sodium (Colace) 100 mg capsule Take 1 capsule (100 mg total) by mouth 2 (two) times a day. 180 each 3 5 04/24/20 26 Active hydroCHLOROthia zide (HYDRODIURIL) 25 mg tablet TAKE ONE TABLET BY MOUTH EVERY DAY 90 tablet 1 5 Active amLODIPine (NORVASC) 10 mg tablet Take 1 tablet (10 mg total) by mouth 1 (one) time each day. 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 03/18/2025 History of vitamin D deficiency 02/17/2025 History of iron deficiency anemia 02/17/2025 Essential hypertension 03/09/2016 Hypothyroidism 03/09/2016 Overview (07/31/2024): Synthroid 25 mcg daily Headache 12/26/2008 Encounters Date Type Department Care Team Description 08/10/2025 Results Follow-Up Gastroenterology - 299 [facility] 299 [facility] [address] [place] [phone] Fatou Parisi PA 08/03/2025 Telephone Gastroenterology - [place] [address] [facility] 175 [facility] [address] [place] [phone] Fatou Parisi PA 07/28/2025 2:20 PM EDT Consult Gastroenterology - [place] 175 [facility] 175 [facility] [address] [place] [address] Fatou Parisi PA Recent change in frequency of bowel movements (Primary Dx); Low serum alkaline phosphatase from Last 3 Months Immunizations Immunization Administration Dates Next Due Influenza Quadravalent, MDCK [...] DX:Hypothyroidis m Essential hypertension 03/09/2016 Hypothyroidism 03/09/2016 Vitamin D deficiency Anxiety Hernia, internal Family History Medical History Relation Name Comments Breast cancer Aunt nena maternal, bila teral mastectomy No Known Problems Brother Tima No Known Problems Daughter 1 No Known Problems Daughter 2 Heart attack Father Andres Hypertension Father Andres CAD ([place]), COPD Prostate cancer Maternal Grandfather Colon cancer Maternal Grandmother Sienna Cancer Mother Ava Diabetes Mother Ava iddm, pancreati c [place] (age 58) Early Mother Ava Breast cancer Mother's Sister Mirian labor Sister 1 Nina twins, deliver ed at ?6-7 months Spontaneous Abortions Sister 1 Nina Diabet es (GDM w/insulin), eclampsia No Known Problems Sister 2 Franny No Known Problems Sister 3 Sunita No Known Problems Son Relation Name Status Comments Aunt nena Alive Brother Tima Alive Daughter 1 Alive Daughter 2 Alive Father Andres Alive Maternal Grandfather Maternal Grandmother Sienna Alive Mother Ava (Age 59) Mother's Sister [...] care for your loved ones. For example, exceptional children's teacher or elderly care for an older adult? [...] Date Recorded What is your living situation? Unrecognized valu e 02/16/2025 Comments No Sex and Gender Information [...] Sign Reading Time Taken Comments Blood Pressure 138/76 07/28/2025 2:18 PM EDT Pulse 83 07/28/2025 2:18 PM EDT Temperature 36.4 C (97.5 F) 04/29/2025 10:07 AM EDT Respiratory Rate 14 08/26/2024 1:14 PM EST Oxygen Saturation 97% 07/28/2025 2:18 PM EDT Inhaled Oxygen Concentration - - Weight 74.8 kg (164 lb 12.8 oz) 07/28/2025 2:18 PM EDT Height 165.1 cm (5' 5 ) 07/28/2025 2:18 PM EDT Body Mass Index 27.42 07/28/2025 2:18 PM EDT Plan of Treatment Upcoming Encounters Date Type Department Care Team (Late st Contact Info) Description 10/14/2025 11:00 AM EST Appointment [facility] Endoscopy [address] [place] [phone] Sameer Fuentes MD [address] [address] 03/16/2026 2:20 PM EDT Office Visit Gastroenterology - 299 [place] [address] [phone] Fatou Parisi PA [address] [address] Health Maintenance Due Date Last Done Comments Hepatitis B Vaccines (1 of 3 - 19+ 3-dose series) 2002 HPV Vaccines (1 - 3-dose SCDM series) 2010 HIV Screening 09/03/2022 Hepatitis C Screening 09/03/2022 COVID-19 Vaccine ( season) 2025 11/12/2021, 10/21/2020, 09/30/2020 Influenza Vaccine (#1) 2025 , 07/12/2023, 09/02/2021, Additional history exists Social Influencers of Health Screening 02/16/2026 02/16/2025 Hypertension/CHF/CAD Annual BMP Blood Test 03/18/2026 03/18/2025, 02/17/2025, 07/30/2024, Additional history exists Cervical Cancer Screening: HPV 01/03/2027 01/03/2022 Breast Cancer Screening 03/31/2027 03/31/2025, 08/22 DTaP,Tdap,and Td Vaccines (3 - Td or Tdap) 04/07/2027 04/07/2017, 12/26/2008 Cholesterol Screening (Lipid Panel) 07/30/2029 07/30/2024, 07/30/2024 RSV Immunization Adult Patients (1 - 1-dose 75+ series) 2058 Depression Screening Completed 02/16/2025 HIB Vaccines Aged [...] on patient's age to complete this topic Goals Goal Patient Goal Type Associated Problems Recent Progress Patient-Stated? Author Autogenerat ed Goal Care Plan Autogenerated Problem No Leonidas Laguna Procedures Procedure Name Priority Date/Time Associated Diagnosis Comments EXTERNAL CLINICAL LAB 2025 ALKALINE PHOSPHATASE, ISOENZYMES Routine 07/28/2025 3:04 PM EDT Recent change in frequency of bowel movements Low serum alkaline phosphatase HEPATIC FUNCTION PANEL Routine 3:04 PM EDT Recent change in frequency of bowel movements Low serum alkaline phosphatase MG MAMMO DIGITAL DIAGNOSTIC W OMAR LEFT Routine 03/31/2025 2:47 PM EDT Lymph node disorder COMPREHENSIVE METABOLIC PANEL Routine 03/18/2025 11:34 AM EDT Screening for metabolic disorder LIPID PANEL Routine 07/30/2024 HM HPV Routine 01/03/2022 from Last 3 Months or Most Recently Relevant to Health Maintenance Results * External clinical lab (2025) us Provider [facility] LAB BLOOD ORDERABLES Fin al Result * (ABNORMAL) Alkaline phosphatase, isoenzymes (07/28/2025 3:04 PM EDT) Alkaline Phosphatase 29(L) 31 - 125 U/L 08/04/2025 1:36 PM EST [facility] Comment: Test Performed at: [facility] [address] [place] [address] Solis Terry MD, PhD, [place] Alk Phos Isoenzyme Intestine TNP 1 - 24 % 08/04/2025 1:36 PM EST [facility] Comment: Test Not Performed. Unable to report. Total analyte level is too low to fractionate. Test Performed at: [facility] [address] [place] [address] Solis Terry MD, PhD, [place] Alk Phos Isoenzyme Bone TNP 28 - 66 % 08/04/2025 1:36 PM EST [facility] Comment: Test Not Performed. Unable to report. Total analyte level is too low to fractionate. Alk Phos Isoenzyme Liver TNP 25 - 69 % 08/04/2025 1:36 PM EST [facility] Comment: Test Not Performed. Unable to report. Total analyte level is too low to fractionate. Increased intestinal alkaline phosphatase can be seen in blood group O and B secretors and after fatty meals. Alk Phos Isoenzyme Placental TNP 0 % 08/04/2025 1:36 PM EST [facility] Comment: Test Not Performed. Unable to report. Total analyte level is too low to fractionate. Alk Phos Isoenzyme Macrohepatic TNP 0 % 08/04/2025 1:36 PM EST [facility] Comment: Test Not Performed. Unable to report. Total analyte level is too low to fractionate. Alkaline Phosphatase Isoenzymes Interpretation TNP 08/04/2025 1:36 PM EST [facility] Comment: Test Not Performed. Unable to report. Total analyte level is too low to fractionate. Blood Venous blood specimen / Unknown Venipuncture / Unknown 07/28/2025 3:04 PM EDT 07/28/2025 3:04 PM EDT us Fatou MCMAHAN LAB BLOOD ORDERABLES Edited R esult - Final [facility] [address] [place] [address] * (ABNORMAL) Hepatic function panel (07/28/2025 3:04 PM EDT) Total Protein 7.5 6.0 - 8.0 g/dL LAB CHEMISTRY METHOD 07/28/2025 6:[address] [facility] Albumin 4.2 3.2 - 5.0 g/dL LAB CHEMISTRY METHOD 07/28/2025 6:38 PM T [facility] Total Bilirubin 0.7 0.0 - 1.4 mg/dL LAB CHEMISTRY METHOD 07/28/2025 6:[address] [facility] Bilirubin, Direct 0.2 0.0 - 0.3 mg/dL LAB CHEMISTRY METHOD 07/28/2025 6:[address] [facility] Bilirubin, Indirect 0.5 0.0 - 1.1 mg/dL LAB CHEMISTRY METHOD 07/28/2025 6:[address] [facility] ALT (SGPT) 17 10 - 60 unit/L LAB CHEMISTRY METHOD 07/28/2025 6:[address] [facility] AST (SGOT) 8(L) 10 - 42 unit/L LAB CHEMISTRY METHOD 07/28/2025 6:[address] [facility] Alkaline Phosphatase 32(L) 42 - 121 unit/L LAB CHEMISTRY METHOD 07/28/2025 6:[address] [facility] Blood Venous blood specimen / Unknown Venipuncture / Unknown 07/28/2025 3:04 PM EDT 07/28/2025 3:04 PM EDT Fatou MCMAHAN LAB BLOOD ORDERABLES Final Re sult [facility] ([facility]) [facility] [address] [place] [address], [place] [phone] * (ABNORMAL) MG Mammo Digital Diagnostic w [...] Date: 03/31/2025 15:28 ET Assigned Physician: Altagracia hSah Reviewed and Electronically Signed By: Altagracia Shah Signed Date: 03/31/2025 15:32 ET Workstation ID: [id number] Transcribed By: Self Edit Transcribed Date: 03/31/2025 [...] Signed Date: 03/31/2025 15:32 ET Workstation ID: [id number] Transcribed By: Self Edit Transcribed Date: 03/31/2025 15:28 ET us Arleen Bradford NP IMG BI PROCEDURES Final Resu lt * (ABNORMAL) Comprehensive metabolic panel (03/18/2025 11:34 AM EDT) Sodium 140 133 - 145 mmol/L LAB CHEMISTRY METHOD 03/18/2025 3:[address] [facility] Potassium 3.1(L) 3.5 - 5.5 mmol/L LAB CHEMISTRY METHOD 03/18/2025 3:[address] [facility] Chloride 103 96 - 110 mmol/L LAB CHEMISTRY METHOD 03/18/2025 3:[address] [facility] CO2 29 21 - 32 mmol/L LAB CHEMISTRY METHOD 03/18/2025 3:[address] [facility] Anion Gap 8 3 - 11 LAB CHEMISTRY METHOD 03/18/2025 3:[address] [facility] Glucose 99 70 - 100 mg/dL LAB CHEMISTRY METHOD 03/18/2025 3:[address] [facility] BUN 14 5 - 25 mg/dL LAB CHEMISTRY METHOD 03/18/2025 3:[address] [facility] Creatinine 0.82 0.50 - 1.10 mg/dL LAB CHEMISTRY METHOD 03/18/2025 3:[address] [facility] eGFR 92 >=60 mL/min/1. 73m2 LAB CHEMISTRY METHOD 03/18/2025 3:[address] [facility] Comment:Calculation based on the Chronic Kidney Disease Epidemiology Collaboration (CKD-EPI) equation refit without adjustment for race. BUN/Creatinine Ratio 17.1 LAB CHEMISTRY METHOD 03/18/2025 3:[address] [facility] Calcium 8.8 8.5 - 10.5 mg/dL LAB CHEMISTRY METHOD 03/18/2025 3:[address] [facility] AST (SGOT) 13 10 - 42 unit/L LAB CHEMISTRY METHOD 03/18/2025 3:[address] [facility] ALT (SGPT) 20 10 - 60 unit/L LAB CHEMISTRY METHOD 03/18/2025 3:[address] [facility] Alkaline Phosphatase 37(L) 42 - 121 unit/L LAB CHEMISTRY METHOD 03/18/2025 3:30 PM EDT [facility] Total Protein 7.2 6.0 - 8.0 g/dL LAB CHEMISTRY METHOD 03/18/2025 3:30 PM EDT [facility] Albumin 3.8 3.2 - 5.0 g/dL LAB CHEMISTRY METHOD 03/18/2025 3:30 PM EDT [facility] Total Bilirubin 0.6 0.0 - 1.4 mg/dL LAB CHEMISTRY METHOD 03/18/2025 3:30 PM EDT [facility] Blood Venous blood specimen / Unknown Venipuncture / Unknown 03/18/2025 11:34 AM EDT 03/18/2025 11:34 AM EDT Arleen Bradford NP LAB BLOOD ORDERABLES Final R esult [facility] [address] [place] [address], [place] [phone] * Lipid panel (07/30/2024) [facility] LDL/HDL Ratio 3 0 - 4 Triglycerides 125 0 - 150 mg/dL Cholesterol 136 0 - 200 mg/dL HDL 47 >=40 mg/dL LDL Cholesterol 64 0 - 100 mg/dL Blood Venous blood specimen / Unknown Historical Provider LAB BLOOD ORDERABLES Rhoda l Result * Cervical Cancer Screening: HPV (01/03/2022) [facility] Cervical Cancer Screening: HPV Negative, abstracted Historical Provider HEALTH MAINTENANCE Final Result from Last 3 Months or Most Recently Relevant to Health Maintenance Additional Health Concerns Active Problems Noted Date Diagnosed Date Autogenerated Problem 08/21/2025 Insurance [employer] Care Teams Practical Nurse Clinical Coordinator Relationship Specialty Start Date End Date Cody Grace MD [address] [place] [phone] PCP - General Internal Medicine 06/03/25
--- OUTSIDE RECORDS SUMMARY | 2025-09-16 20:11 | XMS_ITS ---
Author Name [facility] Organization Unknown Care Team Organization Name Specialty Phone Email Start Date End Da te [facility] Cody Grace Primary Care 08/09/2022 05/20/20 24
--- OUTSIDE RECORDS SUMMARY | 2025-09-16 20:11 | XMS_ITS | Encounter Summary ---
Author Organization [facility] Address [address] [place] [address] Care Team Providers Care Media Services Director Name Role Phone Cody Grace MD Primary Care Provider [phone] Encounter Details Date Type Department Care Team ([facility] Contact Info) Description 08/10/2025 Results Follow-Up Gastroenterology - [address] [place] [phone] Fatou Parisi PA [address] [address] Social History Tobacco Use Types Packs/Day Years Used Date Smoking Tobacco: Never Smokeless Tobacco: Never Alcohol Use Standard Drinks/Week Comments No 0 [...] care for your loved ones. For example, children librarian or elderly care for an older [...] on file Sexual Orientation Not on file documented as of this encounter Progress Notes * MARJ Romero - 08/10/2025 4:39 PM EST I will send msg. documented in this encounter Plan of Treatment Upcoming Encounters Date Type Department Care Team (Late st Contact Info) Description 10/14/2025 11:00 AM EST Appointment [facility] Endoscopy [address] [place] [phone] Sameer Fuentes MD 299 [facility] [address] [place] [address] 03/16/2026 2:20 PM EDT Office Visit Gastroenterology - 299 [place] [address] [facility] [address] [place] [phone] Fatou Parisi PA [address] [address] documented as of this encounter Visit Diagnoses Not on filedocumented in this encounter Additional Health Concerns Assessment Noted Time PHQ-9 Depression Total Score: 16 025 11:10 AM EDT documented as of this encounter Care Teams Media Services Director Relationship Specialty Start Date End Date Cody Grace MD [address] [place] [id number] PCP - General Internal Medicine 06/03/25 documented as of this encounter
== END 2025-09-16 16:37 | disposition home or self-care (01) ==
LOC: HO.ENCR 16:16
PROVIDERS: PCP Internal Medicine; Visit Provider Internal Medicine Endocrinology, Diabetes & Metabolism
DX: E04.2 Nontoxic multinodular goiter (principal); E03.8 Other specified hypothyroidism
CPT/HCPCS: 99213

== ENCOUNTER → 2025-09-16 16:15 | Outpatient (BNVA) | payer OTHER, SELFPAY | PROVIDERS: PCP Internal Medicine; Visit Provider Internal Medicine Endocrinology, Diabetes & Metabolism | DX: E04.2 Nontoxic multinodular goiter (principal); E03.8 Other specified hypothyroidism; Z79.899 Other long term (current) drug therapy | CPT/HCPCS: 99212 ==